=== PATIENT | female | born 1955 | race Caucasian/White ===

== ENCOUNTER 2020-06-23 12:59 | Emergency (ER) | payer OTHER, SELFPAY ==
[2020-06-23 13:10] VITALS: BP 108/62; PULSE 79; RESP 16; TEMP 36.2; O2SAT 99
--- NOTE | 2020-06-23 13:20 | ED.WOUNDLAC ---
HPI - Wound/Laceration General Chief Complaint: Wound/Laceration Stated Complaint: lac on left elbow Time Seen by Provider: 06/23/20 13:18 Source: patient, RN notes reviewed and old records reviewed Mode of arrival: ambulatory Limitations: no limitations History of Present Illness HPI narrative: 65 year old female who presents to [facility] with laceration to her left elbow, Patient states that she was chasing her cat and fell against a picture frame and it broke cutting her left elbow area. Patient states that she is unsure when her last tetanus shot was received. Patient is on Xarelto and has had a lot of bleeding from site has applied pressure dressing to site on her left elbow, patient voices no tingling or numbness to her left arm or hand with strong left radial pulse. Onset (ago): hour(s) (within past 30 minutes) Extremity Location: Left: elbow Place: home Patient tetanus UTD: No Context: accidental Associated symptoms: none Treatments prior to arrival: bandage Related Data Home Medications Medication Instructions Recorded Confirmed carvedilol 25 mg PO BID 06/23/20 06/23/20 fluoxetine 10 mg PO DAILY 06/23/20 06/23/20 lorazepam 1 mg PO PRN PRN 06/23/20 06/23/20 risperidone 3 mg PO HS 06/23/20 06/23/20 rivaroxaban [Xarelto] 10 mg PO DAILY 06/23/20 06/23/20 venlafaxine 300 mg PO DAILY 06/23/20 06/23/20 Allergies Allergy/AdvReac Type Severity Reaction Status Date / Time ampicillin Allergy Unknown Unknown Verified 06/23/20 13:47 Review of Systems Review of Systems: Narrative: CONSTITUTIONAL: Denies fever, chills, or sweats. EYES: Denies visual changes, redness, or discharge. ENT: Denies rhinorrhea, congestion, sore throat, or otalgia. CARDIOVASCULAR: Denies chest pain, palpitations, or edema. RESPIRATORY: Denies cough or dyspnea. GASTROINTESTINAL: Denies abdominal pain, nausea, vomiting, or diarrhea. GENITOURINARY: Denies dysuria or hematuria. SKIN: Denies rash or itching.Laceration to her left elbow MUSCULOSKELETAL: Denies back pain, joint pain, or myalgia. NEUROLOGIC: Denies headache, numbness, or weakness. PSYCHIATRIC: Positive history of anxiety or depression. All systems reviewed & are unremarkable except as noted in HPI and below PMFSH Past Medical History Medical History (Updated 06/30/20 @ 08:09 by Tejal Olvera NP) Anxiety and depression Arthritis DVT (deep venous thrombosis) Eczema Hypertension IBS (irritable bowel syndrome) Psoriasis Sinus problem Sleep apnea Surgical History Surgical History (Updated 06/30/20 @ 07:56 by Tejal Olvera NP) History of cholecystectomy History of spinal surgery History of total right knee replacement (TKR) Family History Family History (Updated 06/30/20 @ 07:57 by eTjal Olvera NP) Grandparent Carcinoma of colon Family history of emphysema Father Heart disease Sibling Hypertension Social History Social History (Updated 06/30/20 @ 07:58 by Tejal Olvera NP) Smoking status: Former smoker Second hand tobacco smoke exposure: No Smoking end date: 05/27/12 Alcohol intake: current Alcohol use details: social Substance use: never Living arrangements: alone Gender identity (if verbalized by the patient): Female Comments At time of signature, agree with nursing past medical, surgical, social and family history. There is no relevant family history pertinent to the presenting complaint Exam Narrative: Exam Narrative: GENERAL: Well-appearing, well-nourished, and in no acute distress. HEAD: Normocephalic, atraumatic. EYES: PERRLA and EOMI. ENT: Nares clear, no rhinorrhea or epistaxis. Mucous membranes moist. NECK: Supple.no lymphadenopathy CHEST: Clear to auscultation. No respiratory distress. SAO2 99% on room air. HEART: Regular rate and rhythm. No murmur heard. Normal peripheral pulses. ABDOMEN: Soft, nontender, nondistended, normal active bowel sounds. EXTREMITIES: Normal range of motion. No edema. SKIN: Warm,
[2020-06-23] MEDS: TETANUS,DIPHTHERIA,AC PERTUSSIS ADULT (0.5 ML) BOOSTRIX IM (14:00)
== END 2020-06-23 14:12 | disposition home or self-care (01) ==
PROVIDERS: Emergency Provider Registered Nurse; PCP Internal Medicine
DX: S51.012A Laceration without foreign body of left elbow, initial encounter (principal); W25.XXXA Contact with sharp glass, initial encounter; Z23 Encounter for immunization; Z87.891 Personal history of nicotine dependence; M19.90 Unspecified osteoarthritis, unspecified site; I10 Essential (primary) hypertension; G47.30 Sleep apnea, unspecified; Z96.651 Presence of right artificial knee joint; Z86.718 Personal history of other venous thrombosis and embolism; F41.9 Anxiety disorder, unspecified; F32.9 Major depressive disorder, single episode, unspecified; Z79.01 Long term (current) use of anticoagulants
CPT/HCPCS: 12001; 90471; 90715; 99213; G0463

== ENCOUNTER 2020-12-14 10:36 | Outpatient (CLI) | payer OTHER, SELFPAY ==
--- NOTE | ~2020-12-14 | CT_ITS ---
EXAMINATION: CT abdomen pelvis wo/w con DATE: 12/14/2020 11:24 INDICATION: Right-sided abdominal pain and hematuria TECHNIQUE: Computed tomography (CT) of the abdomen and pelvis was performed without intravenous contr ast. CT of the abdomen and pelvis was then performed with a total of 130 mL Omnipaque-350 intravenous contrast using a double-bolus technique for simultaneous opacification of the renal parenchyma and r enal collecting system. Automated exposure control and iterative reconstruction technique were employ ed. The dose-length product was 2841.47 mGy-cm. COMPARISON: None FINDINGS: Lung bases are clear. Heart size is normal. No pericardial or pleural effusion. Small sliding-type hi atal hernia. Cholecystectomy clips the gallbladder fossa. Liver, spleen, pancreas and right adrenal g land are normal. 2.2 cm low-attenuation left adrenal adenoma. 1 mm nonobstructing stone at the mid le ft kidney. No stones in the right kidney or along the bilateral ureters. Normal symmetric bilateral r enal parenchymal enhancement. Contrast opacification of the nondilated bilateral renal collecting sys tems and ureters with no evident filling defects or urothelial irregularities. There are few divertic anurag along the sigmoid colon without adjacent inflammatory change to suggest diverticulitis. Small bow el and appendix are normal. Tiny fat-containing umbilical hernia. Bladder, uterus and bilateral adnex a are unremarkable. No free intraperitoneal gas or fluid. No pathologically enlarged abdominal or pel usha lymphadenopathy. There are bridging osteophytes at multiple levels in the lower thoracic spine co nsistent with diffuse idiopathic skeletal hyperostosis (DISH). Mild to moderate lumbar spondylosis. IMPRESSION: 1. 1 mm nonobstructing left renal stone. 2. Small sliding-type hiatal hernia. Reviewed, dictated and finalized at location A.
[2020-12-14 11:06] LABS: Estimated Glomerular Filt Rate > 60
== END 2020-12-14 10:37 | disposition home or self-care (01) ==
LOC: ANHIMG 10:40
PROVIDERS: PCP Internal Medicine; Visit Provider Internal Medicine
DX: K44.9 Diaphragmatic hernia without obstruction or gangrene (principal); N20.0 Calculus of kidney
CPT/HCPCS: 74178; Q9967